=== PATIENT | male | born 1990 | race Caucasian/White ===

== ENCOUNTER 2017-01-07 15:12 | Emergency (ER) | payer OTHER ==
[2017-01-07] MEDS ORDERED: KETAMINE 50 MG/ML 10 ML VIAL IM STA (15:16)
[2017-01-07] MEDS ORDERED: LORazepam 2 MG/ML SYRINGE IM STA (15:45)
[2017-01-07] MEDS ORDERED: ZIPRASIDONE 20 MG VIAL IM STA (15:46)
[2017-01-07 15:59] LABS: Appearance,Urine Clear (Clear); Bilirubin,Urine Negative (Negative); Glucose,Urine (UA) Negative (Negative); Ketones,Urine Negative (Negative); Leukocyte Esterase,Urine Negative (Negative); Nitrite,Urine Negative (Negative); PH, Urine 6.5 (5.0-8.0); Particle Count 2654; Protein,Urine 1+ (Negative); RBC,Urine <1 /hpf (0-5); Specific Gravity,Urine 1.002 (1.001-1.035); Squamous Epithelial Cell,Urine <1 /hpf (0-4); UA Billing (MACRO vs. MICRO) MICRO; Urobilinogen,Urine <2.0 mg/dL (<2.0); WBC,Urine <1 /hpf (0-5)
[2017-01-07 16:13] LABS: ALT 48 U/L (21-72); AST 69 U/L (17-59); Acetaminophen <10.0 ug/mL; Alkaline Phosphatase 79 U/L (38-126); Amylase 238 U/L (30-110); Anion Gap 27 mmol/L; Blood Urea Nitrogen 15 mg/dL (9-20); Carbon Dioxide 15 mmol/L (22-30); Chloride 102 mmol/L (98-107); Glucose 119 mg/dL (74-99); Magnesium 2.2 mg/dL (1.6-2.3); Non-African American GFR(MDRD) >60 (>60 ml/min/1.73 sqM); Potassium 4.4 mmol/L (3.5-5.1); Salicylate <1.0 mg/dL; Sodium 144 mmol/L (137-145); Total Bilirubin 1.3 mg/dL (0.2-1.3); Total Protein 8.6 g/dL (6.3-8.2)
[2017-01-07 16:16] LABS: Alcohol 279 mg/dL
[2017-01-07 16:20] LABS: Basophils # (A) 0.1 k/uL (0-0.2); Basophils % (A) 1 %; CH 29.8; CHCM 32.9; Eosinophils % (A) 0 %; HCT 52.5 % (39.0-53.0); HGB 17.1 gm/dL (13.0-17.5); Luc # (Auto) 0.19; Luc % (Auto) 2; Lymphocytes # (A) 2.2 k/uL (1.0-4.8); Lymphocytes % (A) 27 %; MCH 29.7 pg (25.0-35.0); MCHC 32.6 g/dL (31.0-37.0); Mean Platelet Volume 6.7; Monocytes # (A) 0.3 k/uL (0-1.0); Monocytes % (A) 4 %; Neutrophils # (A) 5.6 k/uL (1.3-7.7); Neutrophils % (A) 66 %; RBC 5.77 m/uL (4.30-5.90); RDW 13.8 % (11.5-15.5); WBC 8.4 k/uL (3.8-10.6); WBC (Perox) 8.44
[2017-01-07 16:41] LABS: Creatine Kinase MB 1.8 ng/mL (0.0-2.4)
--- NOTE | 2017-01-07 17:08 | ED ---
Psych HPI - General Source: patient, police, RN notes reviewed Mode of arrival: ambulatory - History of Present Illness MD Complaint: suicidal ideation, feels depressed <Cornelio Mendez - Last Filed: 01/07/17 17:11> <Chet Oquendo - Last Filed: 01/08/17 01:23> - General Chief Complaint: Psychiatric Symptoms Stated Complaint: Petition Time Seen by Provider: 01/07/17 15:12 - History of Present Illness Initial Comments: This is a 26-year-old male who was brought in by police he was very combative and apparently intoxicated with alcohol thready kill himself voicing suicidal ideation or thoughts possible overdose of medications in addition to this. Patient is not forthcoming with formation. Per police the patient will be petitioned by his mother. The patient required being taken down per police but no injury was sustained discharged head neck or back. (Cornelio Mendez) - Related Data Home Medications Medication Instructions Recorded Confirmed traZODone HCL 50 mg PO HS 01/07/17 01/07/17 Allergies Allergy/AdvReac Type Severity Reaction Status Date / Time No Known Allergies Allergy Verified 01/07/17 21:53 Review of Systems ROS Other: All systems not noted in ROS Statement are negative. Limitations: ROS unobtainable due to patients medical condition <Cornelio Mendez - Last Filed: 01/07/17 17:11> ROS Other: All systems not noted in ROS Statement are negative. <Chet Oquendo - Last Filed: 01/08/17 01:23> ROS Statement: Those systems with pertinent positive or pertinent negative responses have been documented in the HPI. Past Medical History Past Medical History: Unable to Obtain History of Any Multi-Drug Resistant Organisms: Unobtainable Past Surgical History: Unable to Obtain Past Psychological History: PTSD Smoking Status: Unknown if ever smoked Past Alcohol Use History: Heavy Past Drug Use History: Unable to Obtain <Cornelio Mendez - Last Filed: 01/07/17 17:11> General Exam Limitations: no limitations General appearance: alert, anxious Head exam: Present: atraumatic, normocephalic, normal inspection Eye exam: Present: normal appearance, PERRL, EOMI. Absent: scleral icterus, conjunctival injection, periorbital swelling ENT exam: Present: normal exam, mucous membranes moist Neck exam: Present: normal inspection. Absent: tenderness, meningismus, lymphadenopathy Respiratory exam: Present: normal lung sounds bilaterally. Absent: respiratory distress, wheezes, rales, rhonchi, stridor Cardiovascular Exam: Present: normal rhythm, tachycardia, normal heart sounds. Absent: systolic murmur, diastolic murmur, rubs, gallop, clicks GI/Abdominal exam: Present: soft, normal bowel sounds. Absent: distended, tenderness, guarding, rebound, rigid Extremities exam: Present: normal inspection, full ROM, normal capillary refill. Absent: tenderness, pedal edema, joint swelling, calf tenderness Back exam: Present: normal inspection Neurological exam: Present: alert, oriented X3, CN II-XII intact Psychiatric exam: Present: depressed, agitated, anxious, suicidal ideation Skin exam: Present: warm, dry, normal color, other (Provisional abrasions on both hands no active bleeding no formed by seen.). Absent: rash <Cornelio Mendez - Last Filed: 01/07/17 17:11> <Chet Oquendo - Last Filed: 01/08/17 01:23> - General Exam Comments Initial Comments: Is a well-developed well-nourished awake combative male who is verbally abusive to staff and police (Cornelio Mendez) Course <Cornelio Mendez - Last Filed: 01/07/17 17:11> <Chet Oquendo - Last Filed: 01/08/17 01:23> Vital Signs 01/07/17 01/07/17 01/07/17 16:16 16:22 16:52 Temperature 97.2 F L Pulse Rate 121 H 157 H 121 H Respiratory 20 16 14 Rate Blood Pressure 149/91 149/100 133/60 O2 Sat by Pulse 97 97 96 Oximetry 01/07/17 01/07/17 01/07/17 17:15 18:31 19:00 Temperature 99.5 F 98.1 F Pulse Rate 122 H 79 111 H Respiratory 14 18 16 Rate Blood Pressure 141/65 142/62 O2 Sat by Pulse 95 97 97 Oximetry 01/07/17 01/07/17 01/07/17 20:00 21:00 22:00 Temperature Pulse Rate 116 H 117 H Respiratory 16 16 16 Rate Blood Pressure 144/71 O2 Sat by Pulse 97 97 Oximetry 01/08/17 00:11 Temperature Pulse Rate 107 H Respiratory 18 Rate Blood Pressure O2 Sat by Pulse 97 Oximetry - Reevaluation(s) Reevaluation #1: 01/07/17 17:12 The patient did require ketamine for sedation that was administered by me 350 mg. (Cornelio Mendez) Reevaluation #2: 01/07/17 17:12 The patient will be endorsed to Dr. Del Rio who will make the final disposition ( Cornelio Mendez) Procedures - Restraint - Face to Face Restraint Occurrence 1 Patient's Immediate Situation: Endangers self safety, Endangers others' safety, Endangers staff safety, Violent behavior Patient's Reaction to the Intervention: Hostile, Belligerent Patient's Medical & Behavioral Condition: Awake, Agitated Need to Continue or Terminate Restraint or Seclusion: Continue Face to Face Eval of Restraint Date: 01/07/17 Face to Face Eval of Restraint Time: 16:30 <Cornelio Mendez - Last Filed: 01/07/17 17:11> Medical Decision Making - Lab Data Result diagrams: 01/07/17 15:35 01/07/17 15:35 <Cornelio Mendez - Last Filed: 01/07/17 17:11> - Lab Data Result diagrams: 01/07/17 15:35 01/07/17 15:35 <Chet Oquendo - Last Filed: 01/08/17 01:23> - Lab Data Lab Results 01/07/17 01/07/17 01/07/17 Range/Units 15:35 15:35 15:35 WBC 8.4 (3.8-10.6) k/uL RBC 5.77 (4.30-5.90) m/uL Hgb 17.1 (13.0-17.5) gm/dL Hct 52.5 (39.0-53.0) % MCV 91.0 (80.0-100.0) fL MCH 29.7 (25.0-35.0) pg MCHC 32.6 (31.0-37.0) g/dL RDW 13.8 (11.5-15.5) % Plt Count 364 (150-450) k/uL Neutrophils % 66 % Lymphocytes % 27 % Monocytes % 4 % Eosinophils % 0 % Basophils % 1 % Neutrophils # 5.6 (1.3-7.7) k/uL Lymphocytes # 2.2 (1.0-4.8) k/uL Monocytes # 0.3 (0-1.0) k/uL Eosinophils # 0.0 (0-0.7) k/uL Basophils # 0.1 (0-0.2) k/uL Sodium 144 (137-145) mmol/L Potassium 4.4 (3.5-5.1) mmol/L Chloride 102 (98-107) mmol/L Carbon Dioxide 15 L (22-30) mmol/L Anion Gap 27 mmol/L BUN 15 (9-20) mg/dL Creatinine 1.16 (0.66-1.25) mg/dL Est GFR (MDRD) Af Amer >60 (>60 ml/min/1.73 sqM) Est GFR (MDRD) Non-Af >60 (>60 ml/min/1.73 sqM) Glucose 119 H (74-99) mg/dL Calcium 10.0 (8.4-10.2) mg/dL Magnesium 2.2 (1.6-2.3) mg/dL Total Bilirubin 1.3 (0.2-1.3) mg/dL AST 69 H (17-59) U/L ALT 48 (21-72) U/L Alkaline Phosphatase 79 (38-126) U/L Total Creatine Kinase (55-170) U/L CK-MB (CK-2) (0.0-2.4) ng/mL CK-MB (CK-2) Rel Index Total Protein 8.6 H (6.3-8.2) g/dL Albumin 5.5 H (3.5-5.0) g/dL Amylase 238 H (30-110) U/L Lipase 166 (23-300) U/L Urine Color Light Yellow Urine Appearance Clear (Clear) Urine pH 6.5 (5.0-8.0) Ur Specific [place] 1.002 (1.001-1.035) Urine Protein 1+ H (Negative) Urine Glucose (UA) Negative (Negative) Urine Ketones Negative (Negative) Urine Blood Small H (Negative) Urine Nitrite Negative (Negative) Urine Bilirubin Negative (Negative) Urine Urobilinogen <2.0 (<2.0) mg/dL Ur Leukocyte Esterase Negative (Negative) Urine RBC <1 (0-5) /hpf Urine WBC <1 (0-5) /hpf Ur Squamous Epith Cells <1 (0-4) /hpf Cellular Casts 6 (0) /lpf Hyaline Casts 3 H (0-2) /lpf Salicylates <1.0 mg/dL Urine Opiates Screen Not Detected (NotDetected) Ur Oxycodone Screen Not Detected (NotDetected) Urine Methadone Screen Not Detected (NotDetected) Ur Propoxyphene Screen Not Detected (NotDetected) Acetaminophen <10.0 ug/mL Ur Barbiturates Screen Not Detected (NotDetected) U Tricyclic Antidepress Not Detected (NotDetected) Ur Phencyclidine Scrn Not Detected (NotDetected) Ur Amphetamines Screen Not Detected (NotDetected) U Methamphetamines Scrn Not Detected (NotDetected) U Benzodiazepines Scrn Not Detected (NotDetected) Urine Cocaine Screen Not Detected (NotDetected) U Marijuana (THC) Screen Detected H (NotDetected) Serum Alcohol 279 mg/dL 01/07/17 Range/Units 15:35 WBC (3.8-10.6) k/uL RBC (4.30-5.90) m/uL Hgb (13.0-17.5) gm/dL Hct (39.0-53.0) % MCV (80.0-100.0) fL MCH (25.0-35.0) pg MCHC (31.0-37.0) g/dL RDW (11.5-15.5) % Plt Count (150-450) k/uL Neutrophils % % Lymphocytes % % Monocytes % % Eosinophils % % Basophils % % Neutrophils # (1.3-7.7) k/uL Lymphocytes # (1.0-4.8) k/uL Monocytes # (0-1.0) k/uL Eosinophils # (0-0.7) k/uL Basophils # (0-0.2) k/uL Sodium (137-145) mmol/L Potassium (3.5-5.1) mmol/L Chloride (98-107) mmol/L Carbon Dioxide (22-30) mmol/L Anion Gap mmol/L BUN (9-20) mg/dL Creatinine (0.66-1.25) mg/dL Est GFR (MDRD) Af Amer (>60 ml/min/1.73 sqM) Est GFR (MDRD) Non-Af (>60 ml/min/1.73 sqM) Glucose (74-99) mg/dL Calcium (8.4-10.2) mg/dL Magnesium (1.6-2.3) mg/dL Total Bilirubin (0.2-1.3) mg/dL AST (17-59) U/L ALT (21-72) U/L Alkaline Phosphatase (38-126) U/L Total Creatine Kinase 518 H (55-170) U/L CK-MB (CK-2) 1.8 (0.0-2.4) ng/mL CK-MB (CK-2) Rel Index 0.3 Total Protein (6.3-8.2) g/dL Albumin (3.5-5.0) g/dL Amylase (30-110) U/L Lipase (23-300) U/L Urine Color Urine Appearance (Clear) Urine pH (5.0-8.0) Ur Specific [place] (1.001-1.035) Urine Protein (Negative) Urine Glucose (UA) (Negative) Urine Ketones (Negative) Urine Blood (Negative) Urine Nitrite (Negative) Urine Bilirubin (Negative) Urine Urobilinogen (<2.0) mg/dL Ur Leukocyte Esterase (Negative) Urine RBC (0-5) /hpf Urine WBC (0-5) /hpf Ur Squamous Epith Cells (0-4) /hpf Cellular Casts (0) /lpf Hyaline Casts (0-2) /lpf Salicylates mg/dL Urine Opiates Screen (NotDetected) Ur Oxycodone Screen (NotDetected) Urine Methadone Screen (NotDetected) Ur Propoxyphene Screen (NotDetected) Acetaminophen ug/mL Ur Barbiturates Screen (NotDetected) U Tricyclic Antidepress (NotDetected) Ur Phencyclidine Scrn (NotDetected) Ur Amphetamines Screen (NotDetected) U Methamphetamines Scrn (NotDetected) U Benzodiazepines Scrn (NotDetected) Urine Cocaine Screen (NotDetected) U Marijuana (THC) Screen (NotDetected) Serum Alcohol mg/dL Disposition <Cornelio Mendez - Last Filed: 01/07/17 17:11> Time of Disposition: 01:22 <Chet Oquendo - Last Filed: 01/08/17 01:23> Clinical Impression: Alcohol intoxication, Depression, Situational depression Referrals: Melvin Romo DO [Primary Care Provider] - 1-2 days
[2017-01-07 19:21] VITALS: TEMP 98.1
--- NOTE | 2017-01-07 19:38 | XR ---
EXAMINATION TYPE: XR facial bones complete DATE OF EXAM: 01/07/2017 7:30 PM COMPARISON: NONE HISTORY: Pain TECHNIQUE: 3 views FINDINGS: Orbital margins are intact. There is normal aeration of the paranasal sinuses. Maxilla is i ntact. Mandible appears intact. IMPRESSION: Negative facial bone exam.
[2017-01-07 21:11] VITALS: BP 144/71
[2017-01-08 00:13] VITALS: PULSE 107; RESP 18
== END 2017-01-08 01:35 | disposition home or self-care (01) ==
LOC: EC 15:12
DX: F43.21 Adjustment disorder with depressed mood (principal); F32.9 Major depressive disorder, single episode, unspecified; F10.120 Alcohol abuse with intoxication, uncomplicated; R45.851 Suicidal ideations; F43.10 Post-traumatic stress disorder, unspecified; S60.512A Abrasion of left hand, initial encounter; S60.511A Abrasion of right hand, initial encounter; Y90.8 Blood alcohol level of 240 mg/100 ml or more; Z79.899 Other long term (current) drug therapy
CPT/HCPCS: 82075; 36415; 80053; 82150; 82550; 82553; 83690; 83735; 85025; 81001; 80306; 83520 ×2; 80320; 70150; 99285; 96372 ×3; J2060; J3486

== ENCOUNTER 2017-02-14 22:43 | Inpatient (IN) | payer OTHER ==
--- NOTE | 2017-02-14 23:08 | ED ---
General Adult HPI - General Chief complaint: Psychiatric Symptoms Stated complaint: mental health Time Seen by Provider: 02/14/17 22:55 Source: patient, RN notes reviewed, old records reviewed Mode of arrival: ambulatory Limitations: no limitations - History of Present Illness Initial comments: This is a 18-year-old male the ER for evaluation regarding altered mental status , agitation, intoxication, alcohol use and patient admits that the Wellbutrin. Patient does have facial trauma, was found acting inappropriately by [place] [employer] and brought to ER for evaluation by psychiatry - Related Data Home Medications Medication Instructions Recorded Confirmed traZODone HCL 50 mg PO HS 01/07/17 02/14/17 buPROPion HCL [Wellbutrin SR] 150 mg PO BID 02/14/17 02/14/17 Allergies Allergy/AdvReac Type Severity Reaction Status Date / Time No Known Allergies Allergy Verified 02/14/17 22:51 Review of Systems ROS Statement: Those systems with pertinent positive or pertinent negative responses have been documented in the HPI. ROS Other: All systems not noted in ROS Statement are negative. Past Medical History Past Medical History: No Reported History History of Any Multi-Drug Resistant Organisms: None Reported Past Surgical History: No Surgical Hx Reported Past Psychological History: PTSD Smoking Status: Current every day smoker Past Alcohol Use History: Daily, Heavy Past Drug Use History: None Reported General Exam Limitations: no limitations General appearance: alert, in no apparent distress Head exam: Present: atraumatic, normocephalic, normal inspection Eye exam: Present: normal appearance, PERRL, EOMI. Absent: scleral icterus, conjunctival injection, periorbital swelling ENT exam: Present: normal exam, mucous membranes moist Neck exam: Present: normal inspection. Absent: tenderness, meningismus, lymphadenopathy Respiratory exam: Present: normal lung sounds bilaterally. Absent: respiratory distress, wheezes, rales, rhonchi, stridor Cardiovascular Exam: Present: regular rate, normal rhythm, normal heart sounds. Absent: systolic murmur, diastolic murmur, rubs, gallop, clicks GI/Abdominal exam: Present: soft, normal bowel sounds. Absent: distended, tenderness, guarding, rebound, rigid Extremities exam: Present: normal inspection, full ROM, normal capillary refill. Absent: tenderness, pedal edema, joint swelling, calf tenderness Back exam: Present: normal inspection Neurological exam: Present: alert, oriented X3, CN II-XII intact Psychiatric exam: Present: normal affect, normal mood Skin exam: Present: warm, dry, intact, normal color. Absent: rash Course Vital Signs 02/14/17 02/14/17 02/15/17 22:45 23:25 00:11 Temperature 97.7 F 97.0 F L Pulse Rate 138 H 117 H 117 H Respiratory 18 18 18 Rate Blood Pressure 164/84 144/89 145/81 O2 Sat by Pulse 94 L 96 99 Oximetry 02/15/17 00:53 Temperature Pulse Rate 112 H Respiratory 16 Rate Blood Pressure 143/78 O2 Sat by Pulse 96 Oximetry Procedures - Laceration Laceration #1 Consent Obtained: verbal consent Time Out Performed: Yes Indication: laceration Site: face Size (cm): 2 Description: linear Depth: simple, single layer Anesthetic Used: lidocaine 1% Anesthesia Technique: local infiltration Pre-repair: wound explored, irrigated extensively Type of Sutures: nylon Size of Sutures: 4-0 Technique: simple, interrupted Complications: pain Medical Decision Making - Medical Decision Making [facility] ER for evaluation of psychiatric disease, patient with alcohol intoxication, as well as psychiatric medication intoxication which he admits to. Patient will be admitted for overdose, rehydration and monitoring of vital signs. Continue monitoring of electrolytes. - Lab Data Result diagrams: 02/14/17 23:26 02/14/17 23:26 Lab Results 02/14/17 02/14/17 02/14/17 Range/Units 23:20 23:26 23:26 WBC (3.8-10.6) k/uL RBC (4.30-5.90) m/uL Hgb (13.0-17.5) gm/dL Hct (39.0-53.0) % MCV (80.0-100.0) fL MCH (25.0-35.0) pg MCHC (31.0-37.0) g/dL RDW (11.5-15.5) % Plt Count (150-450) k/uL Neutrophils % % Lymphocytes % % Monocytes % % Eosinophils % % Basophils % % Neutrophils # (1.3-7.7) k/uL Lymphocytes # (1.0-4.8) k/uL Monocytes # (0-1.0) k/uL Eosinophils # (0-0.7) k/uL Basophils # (0-0.2) k/uL PT (9.0-12.0) sec INR (<1.1) APTT (22.0-30.0) sec Sodium 150 H (137-145) mmol/L Potassium 4.4 (3.5-5.1) mmol/L Chloride 110 H (98-107) mmol/L Carbon Dioxide 16 L (22-30) mmol/L Anion Gap 24 mmol/L BUN 15 (9-20) mg/dL Creatinine 1.20 (0.66-1.25) mg/dL Est GFR (MDRD) Af Amer >60 (>60 ml/min/1.73 sqM) Est GFR (MDRD) Non-Af >60 (>60 ml/min/1.73 sqM) Glucose 128 H (74-99) mg/dL POC Glucose (mg/dL) 122 H (75-99) mg/dL POC Glu Medical Records Clerk ID Christine Kumar Calcium 9.6 (8.4-10.2) mg/dL Phosphorus 2.8 (2.5-4.5) mg/dL Magnesium 2.1 (1.6-2.3) mg/dL Total Bilirubin 0.7 (0.2-1.3) mg/dL AST 285 H (17-59) U/L ALT 300 H (21-72) U/L Alkaline Phosphatase 124 (38-126) U/L Total Creatine Kinase 508 H (55-170) U/L CK-MB (CK-2) 2.0 (0.0-2.4) ng/mL CK-MB (CK-2) Rel Index 0.4 Troponin I <0.012 (0.000-0.034) ng/mL Total Protein 8.5 H (6.3-8.2) g/dL Albumin 5.5 H (3.5-5.0) g/dL Salicylates <1.0 mg/dL Acetaminophen <10.0 ug/mL Serum Alcohol 225 mg/dL 02/14/17 02/14/17 Range/Units 23:26 23:26 WBC 17.6 H (3.8-10.6) k/uL RBC 6.13 H (4.30-5.90) m/uL Hgb 17.7 H (13.0-17.5) gm/dL Hct 54.1 H (39.0-53.0) % MCV 88.3 (80.0-100.0) fL MCH 28.9 (25.0-35.0) pg MCHC 32.7 (31.0-37.0) g/dL RDW 15.4 (11.5-15.5) % Plt Count 357 (150-450) k/uL Neutrophils % 91 % Lymphocytes % 5 % Monocytes % 3 % Eosinophils % 1 % Basophils % 1 % Neutrophils # 16.0 H (1.3-7.7) k/uL Lymphocytes # 0.8 L (1.0-4.8) k/uL Monocytes # 0.4 (0-1.0) k/uL Eosinophils # 0.1 (0-0.7) k/uL Basophils # 0.1 (0-0.2) k/uL PT 10.1 (9.0-12.0) sec INR 1.0 (<1.1) APTT 20.2 L (22.0-30.0) sec Sodium (137-145) mmol/L Potassium (3.5-5.1) mmol/L Chloride (98-107) mmol/L Carbon Dioxide (22-30) mmol/L Anion Gap mmol/L BUN (9-20) mg/dL Creatinine (0.66-1.25) mg/dL Est GFR (MDRD) Af Amer (>60 ml/min/1.73 sqM) Est GFR (MDRD) Non-Af (>60 ml/min/1.73 sqM) Glucose (74-99) mg/dL POC Glucose (mg/dL) (75-99) mg/dL POC Glu Medical Records Clerk ID Calcium (8.4-10.2) mg/dL Phosphorus (2.5-4.5) mg/dL Magnesium (1.6-2.3) mg/dL Total Bilirubin (0.2-1.3) mg/dL AST (17-59) U/L ALT (21-72) U/L Alkaline Phosphatase (38-126) U/L Total Creatine Kinase (55-170) U/L CK-MB (CK-2) (0.0-2.4) ng/mL CK-MB (CK-2) Rel Index Troponin I (0.000-0.034) ng/mL Total Protein (6.3-8.2) g/dL Albumin (3.5-5.0) g/dL Salicylates mg/dL Acetaminophen ug/mL Serum Alcohol mg/dL - Radiology Data Radiology results: report reviewed (CT brain C-spine negative for acute disease chest x-ray negative for acute disease), image reviewed Disposition Clinical Impression: Psychosis, Alcohol intoxication, Dehydration, Alcoholic ketoacidosis Disposition: ADMITTED IP TO THIS [facility] Condition: Fair Referrals: None,Stated [Primary Care Provider] - 1-2 days
[2017-02-14] MEDS ORDERED: SODIUM CHLORIDE 0.9% 1,000 ML IV STA ×2 (23:15)
[2017-02-14] MEDS ORDERED: SODIUM CHLORIDE 0.9% 500 ML IV STA (23:15)
[2017-02-14] MEDS ORDERED: LORazepam 2 MG/ML SYRINGE IV STA (23:15)
[2017-02-14] MEDS ORDERED: ONDANSETRON 4 MG/2 ML VIAL IVP STA (23:15)
[2017-02-14 23:22] LABS: Glucose,Whole Blood 122 mg/dL (75-99)
[2017-02-14 23:45] LABS: Basophils # (A) 0.1 k/uL (0-0.2); Basophils % (A) 1 %; CH 29.7; CHCM 33.8; Eosinophils # (A) 0.1 k/uL (0-0.7); Eosinophils % (A) 1 %; HCT 54.1 % (39.0-53.0); HDW 2.35; HGB 17.7 gm/dL (13.0-17.5); Luc # (Auto) 0.16; Luc % (Auto) 1; Lymphocytes # (A) 0.8 k/uL (1.0-4.8); Lymphocytes % (A) 5 %; MCH 28.9 pg (25.0-35.0); MCHC 32.7 g/dL (31.0-37.0); MCV 88.3 fL (80.0-100.0); Mean Platelet Volume 6.5; Monocytes # (A) 0.4 k/uL (0-1.0); Monocytes % (A) 3 %; Neutrophils % (A) 91 %; RBC 6.13 m/uL (4.30-5.90); RDW 15.4 % (11.5-15.5); WBC 17.6 k/uL (3.8-10.6); WBC (Perox) 16.45
[2017-02-14 23:56] LABS: Prothrombin Time 10.1 sec (9.0-12.0)
[2017-02-15 00:06] LABS: Partial Thromboplastin Time 20.2 sec (22.0-30.0)
[2017-02-15 00:14] LABS: ALT 300 U/L (21-72); AST 285 U/L (17-59); Acetaminophen <10.0 ug/mL; Alkaline Phosphatase 124 U/L (38-126); Anion Gap 24 mmol/L; Blood Urea Nitrogen 15 mg/dL (9-20); Calcium 9.6 mg/dL (8.4-10.2); Carbon Dioxide 16 mmol/L (22-30); Chloride 110 mmol/L (98-107); Glucose 128 mg/dL (74-99); Magnesium 2.1 mg/dL (1.6-2.3); Non-African American GFR(MDRD) >60 (>60 ml/min/1.73 sqM); Phosphorous 2.8 mg/dL (2.5-4.5); Potassium 4.4 mmol/L (3.5-5.1); Salicylate <1.0 mg/dL; Sodium 150 mmol/L (137-145); Total Bilirubin 0.7 mg/dL (0.2-1.3); Total Protein 8.5 g/dL (6.3-8.2)
[2017-02-15 00:20] LABS: Alcohol 225 mg/dL
[2017-02-15 00:35] LABS: Creatine Kinase 508 U/L (55-170)
[2017-02-15] MEDS ORDERED: SODIUM CHLORIDE 0.9% 2,000 ML IV STA (00:38)
[2017-02-15 00:48] LABS: Troponin I <0.012 ng/mL (0.000-0.034)
[2017-02-15] MEDS ORDERED: SODIUM CHLORIDE 0.9% 1,000 ML IV STA (00:49)
[2017-02-15] MEDS ORDERED: LORazepam 2 MG/ML SYRINGE IV PRN ×3 (00:51)
[2017-02-15] MEDS ORDERED: THIAMINE 100 MG/ML 2 ML VIAL IM STA (00:51)
[2017-02-15 00:53] VITALS: RESP 16
--- NOTE | 2017-02-15 01:03 | CT ---
EXAM: CT Maxillofacial Without Intravenous Contrast CLINICAL HISTORY: Reason: Pain TECHNIQUE: Axial computed tomography images of the face without intravenous contrast. CTDI is 30.9 mGy and DLP is 624.5 mGy-cm. This CT exam was performed using one or more of the following dose reduction techniques: automated exposure control, adjustment of the mA and/or kV according to patient size, and/or use of iterative reconstruction technique. COMPARISON: No relevant prior studies available. FINDINGS: Bones/joints: Fracture of the nasal bone with associated soft tissue swelling. Defect at the medial left orbital floor with inferior prolapse of orbital fat. Slight thickening of the adjacent inferior rectus muscle. Soft tissues: See above. Orbits: See above. Sinuses: Unremarkable. No air-fluid levels. IMPRESSION: 1. Fracture of the nasal bone with associated soft tissue swelling. 2. Defect at the medial left orbital floor with inferior prolapse of orbital fat. Slight thickening of the adjacent inferior rectus muscle. Recommend correlation with clinical exam/ophthalmology consult.
[2017-02-15] MEDS ORDERED: TOPICAL SKIN ADHESIVE 1 EACH AMP TOPICAL ONE (01:08)
--- NOTE | 2017-02-15 01:20 | CT ---
EXAM: CT Head Without Intravenous Contrast CLINICAL HISTORY: Reason: Pain TECHNIQUE: Axial computed tomography images of the head/brain without intravenous contrast. CTDI is 57.4 mGy and DLP is 1098.8 mGy-cm. This CT exam was performed using one or more of the following dose reduction techniques: automated exposure control, adjustment of the mA and/or kV according to patient size, and/or use of iterative reconstruction technique. COMPARISON: No relevant prior studies available. FINDINGS: Brain: No hemorrhage. No acute cortical infarct. No mass effect or midline shift. Ventricles: Unremarkable. Bones/joints: Please see CT facial bones report. Soft tissues: Mild scalp soft tissue swelling. Sinuses: Please see CT facial bones report. Mastoid air cells: Unremarkable as visualized. IMPRESSION: No intracranial hemorrhage. EXAM: CT Cervical Spine Without Intravenous Contrast CLINICAL HISTORY: Reason: Pain TECHNIQUE: Axial computed tomography images of the cervical spine without intravenous contrast. CTDI is 19.1 mGy and DLP is 470.2 mGy-cm. This CT exam was performed using one or more of the following dose reduction techniques: automated exposure control, adjustment of the mA and/or kV according to patient size, and/or use of iterative reconstruction technique. COMPARISON: No relevant prior studies available. FINDINGS: Vertebrae: No acute fracture. No subluxation. Discs/spinal canal/neural foramina: No critical central canal stenosis. Right C3-4 neural foraminal stenosis is noted. Soft tissues: Unremarkable. Lung apices: Unremarkable as visualized. IMPRESSION: No acute fracture.
--- NOTE | 2017-02-15 02:28 | XR ---
EXAM: XR Chest, 2 Views CLINICAL HISTORY: Reason: Pain TECHNIQUE: Frontal and lateral views of the chest. COMPARISON: No relevant prior studies available. FINDINGS: Lungs: No consolidation. Pleural space: Unremarkable. No pneumothorax. Heart: Unremarkable. Mediastinum: Unremarkable. Bones/joints: Unremarkable. IMPRESSION: No acute cardiopulmonary disease.
[2017-02-15 03:06] LABS: Appearance,Urine Clear (Clear); Bilirubin,Urine Negative (Negative); Glucose,Urine (UA) Negative (Negative); Ketones,Urine Trace (Negative); Leukocyte Esterase,Urine Negative (Negative); Mucus,Urine Rare /hpf; Nitrite,Urine Negative (Negative); PH, Urine 5.5 (5.0-8.0); Particle Count 2576; Protein,Urine Trace (Negative); RBC,Urine <1 /hpf (0-5); Specific Gravity,Urine 1.011 (1.001-1.035); UA Billing (MACRO vs. MICRO) MICRO; Urobilinogen,Urine <2.0 mg/dL (<2.0); WBC,Urine 2 /hpf (0-5)
[2017-02-15 07:30] VITALS: BP 137/94; PULSE 113; TEMP 98.1
[2017-02-15] MEDS ORDERED: DEXTROSE 5%-0.45% NACL 1,000 ML IV SCH (11:30)
[2017-02-15 12:38] LABS: Chloride 102 mmol/L (98-107); Glucose 81 mg/dL (74-99); Sodium 139 mmol/L (137-145); Total Protein 6.9 g/dL (6.3-8.2)
[2017-02-15 12:40] LABS: ALT 240 U/L (21-72); AST 213 U/L (17-59); Alkaline Phosphatase 78 U/L (38-126); Anion Gap 13 mmol/L; Blood Urea Nitrogen 13 mg/dL (9-20); Calcium 8.9 mg/dL (8.4-10.2); Carbon Dioxide 24 mmol/L (22-30); Non-African American GFR(MDRD) >60 (>60 ml/min/1.73 sqM); Total Bilirubin 1.9 mg/dL (0.2-1.3)
--- NOTE | 2017-02-15 16:33 | P.HPIM ---
History of Present Illness H&P Date: 02/15/17 Patient came to the hospital after she was petitioned by police as patient was confused. The initial thought processes was patient probably overdosed and was trying to commit suicide. Although patient denied any suicide attempt, patient does have history of posttraumatic stress disorder, although he denied severe depression. But but anxious. Patient denied overdosing on Wellbutrin. He just took his normal doses of Wellbutrin as per the patient. Patient does drink alcohol only 2-3 times a day but patient is tremulous which she attributes to anxiety. Patient was bit tachycardic as well which again he attributes to anxiety. Patient denied any previous withdrawal symptoms and hoping to go home. Patient does have elevated liver enzymes because of which I repeated the liver enzymes which are fairly stable or minimally lower than yesterday. Patient does have leukocytosis without any signs or symptoms of infection. Patient is alert oriented 3 not confused anymore patient confusion is related to all call intoxication. Review of Systems REVIEW OF SYSTEMS: CONSTITUTIONAL: No fever, no malaise, no fatigue. Confusion on admission as mentioned above HEENT: No recent visual problems or hearing problems. Denied any sore throat. CARDIOVASCULAR: No chest pain, orthopnea, PND, no palpitations, no syncope. PULMONARY: No shortness of breath, no cough, no hemoptysis. GASTROINTESTINAL: No diarrhea, no nausea, no vomiting, no abdominal pain. Normoactive bowel sounds. NEUROLOGICAL: No headaches, no weakness, no numbness. HEMATOLOGICAL: Denies any bleeding or petechiae. GENITOURINARY: Denies any burning micturition, frequency, or urgency. MUSCULOSKELETAL/RHEUMATOLOGICAL: Denies any joint pain, swelling, or any muscle pain. ENDOCRINE: Denies any polyuria or polydipsia. The rest of the 14-point review of systems is negative. Past Medical History Past Medical History: No Reported History History of Any Multi-Drug Resistant Organisms: None Reported Past Surgical History: No Surgical Hx Reported Additional Past Anesthesia/Blood Transfusion Reaction / Comment(s): patient states he has never had anesthesia Past Psychological History: PTSD Smoking Status: Current every day smoker Past Alcohol Use History: Daily, Heavy Past Drug Use History: None Reported - Past Family History Mother Additional Family Medical History / Comment(s): depression, arm surgery Medications and Allergies Home Medications Medication Instructions Recorded Confirmed Type traZODone HCL 50 mg PO HS 01/07/17 02/14/17 History buPROPion HCL [Wellbutrin SR] 150 mg PO BID 02/14/17 02/14/17 History Allergies Allergy/AdvReac Type Severity Reaction Status Date / Time No Known Allergies Allergy Verified 02/14/17 22:51 Physical Exam Vitals: Vital Signs Temp Pulse Pulse Resp BP BP Pulse Ox 02/15/17 07:00 98.1 F 113 H 16 137/94 96 02/15/17 02:15 98.5 F 116 H 16 148/86 96 02/15/17 00:53 112 H 16 143/78 96 02/15/17 00:11 97.0 F L 117 H 18 145/81 99 02/14/17 23:25 117 H 18 144/89 96 02/14/17 22:45 97.7 F 138 H 18 164/84 94 L Intake and Output 02/15/17 02/15/17 02/15/17 06:59 14:59 22:59 Output Total 600 Balance -600 Output: Urine 600 Other: Voiding Method Toilet # Voids 1 PHYSICAL EXAMINATION: GENERAL: The patient is alert and oriented x3, not in any acute distress. Well developed, well nourished. Patient is bit tremulous and anxious HEENT: Pupils are round and equally reacting to light. EOMI. No scleral icterus. No conjunctival pallor. Normocephalic, atraumatic. No pharyngeal erythema. No thyromegaly. CARDIOVASCULAR: S1 and S2 present. No murmurs, rubs, or gallops. Mild tachycardia, sinus PULMONARY: Chest is clear to auscultation, no wheezing or crackles. ABDOMEN: Soft, nontender, nondistended, normoactive bowel sounds. No palpable organomegaly. MUSCULOSKELETAL: No joint swelling or deformity. EXTREMITIES: No cyanosis, clubbing, or pedal edema. NEUROLOGICAL: Gross neurological examination did not reveal any focal deficits. SKIN: No rashes. Results CBC & Chem 7: 02/14/17 23:26 02/15/17 12:10 Labs: Abnormal Lab Results - Last 24 Hours (Table) 02/14/17 02/14/17 02/14/17 Range/Units 23:20 23:26 23:26 WBC (3.8-10.6) k/uL RBC (4.30-5.90) m/uL Hgb (13.0-17.5) gm/dL Hct (39.0-53.0) % Neutrophils # (1.3-7.7) k/uL Lymphocytes # (1.0-4.8) k/uL APTT (22.0-30.0) sec Sodium 150 H (137-145) mmol/L Chloride 110 H (98-107) mmol/L Carbon Dioxide 16 L (22-30) mmol/L Glucose 128 H (74-99) mg/dL POC Glucose (mg/dL) 122 H (75-99) mg/dL Osmolality (280-301) mosm/kg Total Bilirubin (0.2-1.3) mg/dL AST 285 H (17-59) U/L ALT 300 H (21-72) U/L Total Creatine Kinase 508 H (55-170) U/L Total Protein 8.5 H (6.3-8.2) g/dL Albumin 5.5 H (3.5-5.0) g/dL Urine Protein (Negative) Urine Ketones (Negative) Urine Blood (Negative) Hyaline Casts (0-2) /lpf Urine Mucus (None) /hpf 02/14/17 02/14/17 02/14/17 Range/Units 23:26 23:26 23:26 WBC 17.6 H (3.8-10.6) k/uL RBC 6.13 H (4.30-5.90) m/uL Hgb 17.7 H (13.0-17.5) gm/dL Hct 54.1 H (39.0-53.0) % Neutrophils # 16.0 H (1.3-7.7) k/uL Lymphocytes # 0.8 L (1.0-4.8) k/uL APTT 20.2 L (22.0-30.0) sec Sodium (137-145) mmol/L Chloride (98-107) mmol/L Carbon Dioxide (22-30) mmol/L Glucose (74-99) mg/dL POC Glucose (mg/dL) (75-99) mg/dL Osmolality 370 H* (280-301) mosm/kg Total Bilirubin (0.2-1.3) mg/dL AST (17-59) U/L ALT (21-72) U/L Total Creatine Kinase (55-170) U/L Total Protein (6.3-8.2) g/dL Albumin (3.5-5.0) g/dL Urine Protein (Negative) Urine Ketones (Negative) Urine Blood (Negative) Hyaline Casts (0-2) /lpf Urine Mucus (None) /hpf 02/15/17 02/15/17 Range/Units 02:48 12:10 WBC (3.8-10.6) k/uL RBC (4.30-5.90) m/uL Hgb (13.0-17.5) gm/dL Hct (39.0-53.0) % Neutrophils # (1.3-7.7) k/uL Lymphocytes # (1.0-4.8) k/uL APTT (22.0-30.0) sec Sodium (137-145) mmol/L Chloride (98-107) mmol/L Carbon Dioxide (22-30) mmol/L Glucose (74-99) mg/dL POC Glucose (mg/dL) (75-99) mg/dL Osmolality (280-301) mosm/kg Total Bilirubin 1.9 H (0.2-1.3) mg/dL AST 213 H (17-59) U/L ALT 240 H (21-72) U/L Total Creatine Kinase (55-170) U/L Total Protein (6.3-8.2) g/dL Albumin (3.5-5.0) g/dL Urine Protein Trace H (Negative) Urine Ketones Trace H (Negative) Urine Blood Trace H (Negative) Hyaline Casts 4 H (0-2) /lpf Urine Mucus Rare H (None) /hpf Microbiology - Last 24 Hours (Table) 02/15/17 02:48 Urine Culture - Preliminary Urine,Clean Catch Thrombosis Risk Factor Assmnt - Choose All That Apply Any of the Below Risk Factors Present?: No Other Risk Factors: No Other congenital or acquired thrombophilia - If yes, enter type in comment: No Thrombosis Risk Factor Assessment Level: Very Low Risk Assessment and Plan Plan: #1 altered mental status: Seconded all call intoxication patient denied any suicidal ideation but does have history of depression. #2 elevated liver enzymes: Most probably alcoholic hepatitis, counseling was provided and patient is willing to quit alcohol altogether although he denied any alcohol abuse only uses alcohol twice a week. AST and ALT ratio is not typical for alcohol Hepatitis patient may need further evaluation for elevated liver enzymes if they continue to be evaluated as an outpatient. #3 anxiety and posttraumatic stress disorder along with depression. #4 leukocytosis reactive in nature without any signs or symptoms of infection. #5 hyponatremia and hypochloremia secondary to IV fluids which improved #6 noniron gap metabolic acidosis secondary to hyperchloremia which is again due to IV normal saline. #7 ruled out fractures of the cervical spine and intracranial bleed with head and cervical spine CT.
--- NOTE | 2017-02-15 16:34 | P.DS ---
Providers Date of admission: 02/15/17 00:51 Attending physician: Claudia Vu Consults: 02/15/17 00:57 Consult Physician Routine Consulting Provider: Katharina Vale Consult Reason/Comments: psych Do you want consulting provider notified?: Yes Primary care physician: Stated None Hospital Course: Please refer to HPI Patient Condition at Discharge: Fair Plan - Discharge Summary New Discharge Prescriptions: New Thiamine [Vitamin B-1] 100 mg PO DAILY #15 tablet No Action traZODone HCL 50 mg PO HS buPROPion HCL [Wellbutrin SR] 150 mg PO BID Discharge Medication List traZODone HCL 50 mg PO HS 01/07/17 [History] buPROPion HCL [Wellbutrin SR] 150 mg PO BID 02/14/17 [History] Thiamine [Vitamin B-1] 100 mg PO DAILY #15 tablet 02/15/17 [Rx] Follow up Appointment(s)/Referral(s): None,Stated [Primary Care Provider] - 1-2 days Ambulatory/Diagnostic Orders: Comprehensive Metabolic Panel [LAB.AMB] Time Frame: 3 Days, Location: Determined By Patient Patient Instructions/Handouts: Abuse of Alcohol (DC) Discharge Disposition: HOME SELF-CARE
[2017-02-15] MEDS ORDERED: THIAMINE 100 MG TAB PO SCH (17:00)
== END 2017-02-15 13:40 | disposition home or self-care (01) | DRG 897 ==
LOC: EC 22:43 → 4MS4W 02-15 00:51
PROVIDERS: ADMIT Hospitalist; ATTEND Hospitalist
DX: F10.129 Alcohol abuse with intoxication, unspecified (principal); E87.2 Acidosis; E87.8 Other disorders of electrolyte and fluid balance, not elsewhere classified; E87.1 Hypo-osmolality and hyponatremia; K70.10 Alcoholic hepatitis without ascites; F32.9 Major depressive disorder, single episode, unspecified; F43.10 Post-traumatic stress disorder, unspecified; F41.9 Anxiety disorder, unspecified; F17.200 Nicotine dependence, unspecified, uncomplicated; Y90.7 Blood alcohol level of 200-239 mg/100 ml; Z81.8 Family history of other mental and behavioral disorders; Z79.899 Other long term (current) drug therapy
CPT/HCPCS: 12011; 36415; 70450; 70486; 71020; 72125; 80053; 80306; 80320; 81001; 82075; 82550; 82553; 83520; 83735; 83930; 84100; 84484; 85025; 85610; 85730; 87086; 96361; 96374; 96375; 99285